=== PATIENT | male | born 1965 | race Caucasian/White ===

== ENCOUNTER 2024-02-13 19:47 | Emergency (ER) | payer SELFPAY ==
[2024-02-13 19:53] VITALS: BMI 43.5
[2024-02-13] MEDS ORDERED: LABETALOL HCL 5 MG/1 ML (100MG/20 ML VIAL) ONE (20:24)
[2024-02-13] MEDS: LABETALOL HCL 5 MG/1 ML (100MG/20 ML VIAL) IVPUSH ONE (20:27)
[2024-02-13 20:44] LABS: BASO % 0.7 % (0-2.0); EOS % 4.7 % (0-4.5); HEMATOCRIT 43.5 % (35.4-49); HEMOGLOBIN 15.3 GM/dL (11.7-16.9); MCH 32.6 pg (25.7-33.7); MCHC 35.2 g/dl (32.0-35.9); MEAN CELL VOLUME 92.7 fl (80-96); MEAN PLT VOLUME 8.9 fl (7.5-11.1); MONO % 8.3 % (3.8-10.2); NEUT % 55.3 % (42.8-82.8); PLATELET COUNT 104 10^3/uL (134-434); RBC 4.69 M/mm3 (4.00-5.60); RDW 13.1 % (11.9-15.9); WHITE BLOOD COUNT 7.7 K/mm3 (4.0-10.0)
[2024-02-13 20:51] LABS: POTASSIUM 4.1 mmol/L (3.5-5.1)
[2024-02-13 20:53] LABS: INR 0.98 (0.83-1.09); PROTHROMBIN TIME (PATIENT) 11.4 SEC (9.7-13.0)
[2024-02-13 20:54] LABS: MAGNESIUM 2.3 mg/dL (1.8-2.4)
[2024-02-13 20:55] LABS: CALCIUM 8.6 mg/dL (8.5-10.1)
[2024-02-13 20:56] LABS: ALBUMIN 3.9 g/dl (3.4-5.0); BLOOD UREA NITROGEN 16.7 mg/dL (7-18)
[2024-02-13 20:56] LABS: ACTIVATED PTT 26.2 SECONDS (25.2-36.5)
[2024-02-13 20:58] LABS: CREATININE 1.4 mg/dL (0.55-1.3)
[2024-02-13 20:59] LABS: TOT PROT 6.8 g/dl (6.4-8.2)
[2024-02-13 21:01] LABS: BILIRUBIN,TOTAL 0.4 mg/dL (0.2-1)
[2024-02-13 21:30] LABS: URINE APPEARANCE CLEAR; URINE BILIRUBIN NEGATIVE (NEGATIVE); URINE COLOR YELLOW; URINE GLUCOSE (UA) NEGATIVE (NEGATIVE); URINE KETONE NEGATIVE (NEGATIVE); URINE LEUK ESTERASE NEGATIVE (NEGATIVE); URINE NITRITE NEGATIVE (NEGATIVE); URINE PROTEIN NEGATIVE (NEGATIVE); URINE UROBILINOGEN 0.2 mg/dL (0.2-1.0)
[2024-02-13] MEDS ORDERED: ATORVASTATIN CA 80 MG TABLET (FP) ONE (22:04)
[2024-02-13] MEDS ORDERED: VALSARTAN 80 MG TABLET ONE (22:04)
[2024-02-13] MEDS: ATORVASTATIN CA 80 MG TABLET (FP) PO ONE (22:07)
[2024-02-13 22:15] VITALS: RESP 16
[2024-02-13] MEDS: VALSARTAN 40 MG TABLET PO ONE (22:15)
[2024-02-13] MEDS: EZETIMIBE 10 MG TABLET (FP) PO ONE (22:38)
[2024-02-14 00:24] VITALS: PULSE 102; TEMP 97.8
[2024-02-14 00:25] VITALS: BP 169/95
[2024-02-14] MEDS ORDERED: GEMFIBROZIL 600 MG TABLET (FP) PO SCH (07:00)
== END 2024-02-14 00:27 | disposition short-term general hospital (02) ==
LOC: JER 19:47
DX: G45.9 Transient cerebral ischemic attack, unspecified (principal); Z20.822 Contact with and (suspected) exposure to COVID-19
CPT/HCPCS: 0241U-QW; 36415; 70450-TC; 71045-TC-FY; 80053; 80061; 80307; 81003; 82550; 83036; 83735; 84484; 85025; 85610; 85730; 86850; 86900; 86901; 93005; 93010; 99285-25